=== PATIENT | male | born 1980 | race Two or more races ===

== ENCOUNTER 2018-10-27 07:45 | Emergency (ER) | payer OTHER ==
[2018-10-27 08:10] VITALS: BP 118/81; PULSE 53; TEMP 97.5; BMI 25.9
--- NOTE | 2018-10-27 08:37 | PDOC ---
History of Present Illness - General Chief Complaint: Eye Problem Stated Complaint: SWELLING BOTH EYES Time Seen by Provider: 10/27/18 08:35 History Source: Patient Exam Limitations: Clinical Condition - History of Present Illness Initial Comments: 10/27/18 08:45 Patient with no significant past medical history present with complaint of swelling to bilateral eyelids and rash to face and bilateral neck area with itching and upon wake this morning. Patient reported started itching last night of unknown etiology and broke out in hives this morning. Denies shortness of breath, choking sensation, tongue or lip swelling. Denies any new food or soap usage. Patient did not take anything for symptoms. Denies blurry vision, change in vision or eye pain. Past History - Past Medical History Allergies/Adverse Reactions: Allergies Allergy/AdvReac Type Severity Reaction Status Date / Time No Known Allergies Allergy Verified 10/27/18 07:59 Home Medications: Ambulatory Orders Famotidine [Pepcid -] 20 mg PO BID 4 Days #8 tablet 10/27/18 predniSONE [Deltasone -] 20 mg PO BID 4 Days #8 tablet 10/27/18 COPD: No - Immunization History Immunization Up to Date: No - Suicide/Smoking/Psychosocial Hx Smoking History: Never smoked Hx Alcohol Use: No Drug/Substance Use Hx: No Review of Systems - Review of Systems Able to Perform ROS?: Yes Is the patient limited Marshallese proficient: No Constitutional: No: Chills, Fever, Malaise, Night Sweats HEENTM: Yes: Symptoms Reported, See HPI, Eye Pain (b/l eyes irritation and eyelids swelling). No: Blurred Vision, Tearing, Recent change in vision, Double Vision, Cataracts, Ear Pain, Ocular Prothesis, Ear Discharge, Nose Pain, Nose Congestion, Tinnitus, Nose Bleeding, Hearing Loss, Throat Pain, Throat Swelling, Mouth Pain, Dental Problems, Difficulty Swallowing, Mouth Swelling, Other Respiratory: No: Symptoms reported, See HPI, Cough, Orthopnea, Shortness of Breath, SOB with Exertion, SOB at Rest, Stridor, Wheezing, Productive cough, Hemoptysis, Other Cardiac (ROS): No: Symptoms Reported, See HPI, Chest Pain, Edema, Irregular Heart Rate, Lightheadedness, Palpitations, Syncope, Chest Tightness, Other ABD/GI: No: Nausea, Vomiting Musculoskeletal: No: Symptoms Reported, Joint Stiffness Integumentary: Yes: Symptoms Reported, See HPI, Pruritus (face and neck areas), Rash (face and neck areas), Other (swelling of b/l eyelids) All Other Systems: Reviewed and Negative *Physical Exam - Vital Signs Last Vital Signs Temp Pulse Resp BP Pulse Ox 97.5 F L 53 L 18 118/81 100 10/27/18 07:59 10/27/18 07:59 10/27/18 07:59 10/27/18 07:59 10/27/18 07:59 - Physical Exam Comments: 10/27/18 08:37 GENERAL: Well developed, well nourished. Awake and alert. No acute distress. HEENT: mild swelling to b/l eyelids. 20/20 vision in b/; eyes on visual acuity. Normocephalic, atraumatic. PERRLA, EOMI. No conjunctival pallor. Sclera are non-icteric. Moist mucous membranes. Oropharynx is clear and patent. no tongue or lip swelling. NECK: Supple. Full ROM. CARDIOVASCULAR: Regular rate and rhythm. No murmurs, rubs, or gallops. Distal pulses are 2+ and symmetric. PULMONARY: No evidence of respiratory distress. Lungs clear to auscultation bilaterally. No wheezing, rales or rhonchi. ABDOMINAL: Soft. Non-tender. Non-distended. No rebound or guarding. No organomegaly. Normoactive bowel sounds. MUSCULOSKELETAL Normal range of motion at all joints. SKIN: Warm and dry. Normal capillary refill. diffused urticarial rash to b/l anterior neck areas and face w/o excoriations NEUROLOGICAL: Alert, awake, appropriate. Gait is normal without ataxia. PSYCHIATRIC: Cooperative. Good eye contact. Appropriate mood General Appearance: Yes: Nourished, Appropriately Dressed. No: Apparent Distress Medical Decision Making - Medical Decision Making 10/27/18 08:46 Patient with no significant past medical history present with complaint of swelling to bilateral eyelids and rash to face and bilateral neck area with itching and upon wake this morning. Patient reported started itching last night of unknown etiology and broke out in hives this morning. Denies shortness of breath, choking sensation, tongue or lip swelling. Denies any new food or soap usage. Patient did not take anything for symptoms Exam significant for mild swelling to bilateral eyelids with the urticarial rash to bilateral side of face and bilateral anterior neck areas without excoriations consistent with ALLERGIC dermatitis. Decadron 10 mg IM and Benadryl 50 mg IM ordered for ALLERGIC reaction. Patient is stable for outpatient management on by mouth prednisone twice a day for 4 days and Pepcid twice a day for 4 day for antihistamine with strict follow-up *DC/Admit/Observation/Transfer Diagnosis at time of Disposition: Allergic dermatitis - Discharge Dispostion Disposition: HOME Condition at time of disposition: Stable Decision to Admit order: No - Prescriptions Prescriptions: Famotidine [Pepcid -] 20 mg PO BID 4 Days #8 tablet predniSONE [Deltasone -] 20 mg PO BID 4 Days #8 tablet - Referrals Referrals: Silvio Garcia MD [Staff Physician] - - Patient Instructions Printed Discharge Instructions: DI for Hives Additional Instructions: Take medications as prescribed. Come back to emergency room if worsening eye swelling, shortness of breath, choking sensation, lip or tongue swelling as this will need an emergent treatment - Post Discharge Activity Forms/Work/School Notes: Back to Work
[2018-10-27] MEDS ORDERED: DEXAMETHASONE SOD PHOSPHATE 10 MG/1 ML VIAL IM ONE (08:41)
[2018-10-27] MEDS ORDERED: DEXAMETHASONE SOD PHOSPHATE 10 MG/1 ML VIAL ONE (08:47)
== END 2018-10-27 08:57 | disposition home or self-care (01) ==
LOC: JERFT 07:45 → JER 07:45 → JERFT 08:57
PROC: 3E0233Z Introduction of Anti-inflammatory into Muscle, Percutaneous Approach (ICD-10-PCS; principal; 2018-10-27)
PROC: 3E023GC Introduction of Other Therapeutic Substance into Muscle, Percutaneous Approach (ICD-10-PCS; 2018-10-27)
DX: L23.9 Allergic contact dermatitis, unspecified cause (principal)
CPT/HCPCS: 99282-25; J1100